=== PATIENT | male | born 1935 | race Caucasian/White ===

== ENCOUNTER → 2017-09-12 | Outpatient (CLI) | payer OTHER ==
[~2017-09-12] MED LIST: ASPIR 8181 M1 PO; ASPIRIN EC325 MG PO; ATORVASTATIN CA40 MG PO; CARVEDILOL3.125 MG PO; DONEPEZIL HCL10 MG PO; GLIPIZIDE10 MG PO; LEVEMIR FL100 UNIT/1 SC; LEVOFLOXACIN500 MG PO; LISINOPRIL2.5 MG PO; NORVASC10 MG PO; NORVASC5 MG PO; NOVOLOG PE100 UNITS/ SC; NYSTATIN15 GM TP; OMEPRAZOLE20 M2 PO; PROSCAR5 MG PO; TENORMIN50 MG PO; TERAZOSIN HCL5 MG PO; VITAMIN D1000 UNIT PO; ZESTORETIC 20-1 EAC2 PO
== END ==
LOC: RAD 11:00
DX: N28.1 Cyst of kidney, acquired (principal); I71.4 Abdominal aortic aneurysm, without rupture; M89.8X8 Other specified disorders of bone, other site; N32.89 Other specified disorders of bladder; K40.90 Unilateral inguinal hernia, without obstruction or gangrene, not specified as recurrent; N18.3 Chronic kidney disease, stage 3 (moderate)
CPT/HCPCS: 74178

== ENCOUNTER 2017-12-22 13:58 | Observation (INO) | payer OTHER ==
[~2017-12-22] VITALS: Ht 185.4 cm; Wt 111.2 kg
[2017-12-22 15:37] LABS: HEMOGLOBIN 14.9 G/DL (12.5-16.6); MCH 33.3 PG (29.0-34.0); MCHC 33.9 G/DL (30.0-36.0); MCV 98.2 FL (86-99); PLATELET COUNT 160 K/uL (156-360); RBC DIS.WIDTH-CV 12.3 % (11.8-14.6); RBC DIS.WIDTH-SD 44.5 % (39-53); RED BLOOD COUNT 4.48 M/uL (4.00-5.50); WHITE BLOOD COUNT 7.6 K/uL (4.1-10.2)
[2017-12-22 15:56] LABS: CHLORIDE 103 MEQ/L (99-109); MAGNESIUM 1.9 mg/dl (1.3-2.7); POTASSIUM 4.6 MEQ/L (3.7-5.4); SODIUM 140 MEQ/L (136-147)
[2017-12-22 16:02] LABS: CREATININE 1.7 MG/DL (0.6-1.3); GFR ESTIMATE (CALCULATED) 41 mL/min/ (58.99-99999); GLUCOSE 159 mg/dL (70-99); UREA NITROGEN (BUN) 32 mg/dL (9-23)
[2017-12-22 16:51] LABS: APPEARANCE CLEAR ((CLEAR)); BILIRUBIN NEGATIVE; BLOOD NEGATIVE; COLOR YELLOW ((YELLOW)); GLUCOSE (STRIP) NEGATIVE; KETONES NEGATIVE; LEUKOCYTES MODERATE; NITRITE NEGATIVE; PROTEIN (STRIP) 100; SPECIFIC GRAVITY 1.015 (1.000-1.030); UROBILINOGEN 0.2 MG/DL (0.2-1.0)
[2017-12-22] MEDS ORDERED: ECOTRIN325 MG PO (16:57)
[2017-12-22] MEDS ORDERED: VITAMIN D-3 401 EACH PO (16:57)
[2017-12-22] MEDS ORDERED: MIRALAX17 GM PO (16:58)
[2017-12-22] MEDS ORDERED: LASIX40 MG PO (16:59)
[2017-12-22] MEDS ORDERED: COREG25 M1 PO (17:00)
[2017-12-22] MEDS ORDERED: PRINIVIL5 MG PO (17:00)
[2017-12-22] MEDS ORDERED: BUSPAR10 MG PO (17:01)
[2017-12-22] MEDS ORDERED: DESYREL 150 MG150 MG PO (17:02)
[2017-12-22] MEDS ORDERED: FLOMAX0.4 MG PO (17:03)
[2017-12-22] MEDS ORDERED: SENEXON-S TABL1 EACH PO (17:03)
[2017-12-22] MEDS ORDERED: ZANTAC150 MG PO (17:04)
[2017-12-22] MEDS ORDERED: PROSCAR5 MG PO (17:04)
[2017-12-22] MEDS ORDERED: ATIVAN0.5 MG PO (17:05)
[2017-12-22] MEDS ORDERED: TRESIBA FL100 UNIT/1 SC (17:06)
[2017-12-22] MEDS ORDERED: NOVOLOG PE100 UNITS/ SC (17:08)
[2017-12-22] MEDS ORDERED: PREPARATION H1 EAC4 PR (17:09)
[2017-12-22] MEDS ORDERED: GLUCAGEN1 MG/1 ML IM (17:09)
[2017-12-22 17:11] LABS: BACTERIA NONE SEEN /HPF; EPITHELIAL CELLS RARE /HPF; MUCUS TRACE /LPF; UCUL ADDED? YES; WHITE BLOOD CELLS 20-30 /HPF (0-5)
[2017-12-22] MEDS ORDERED: ULTRAM50 MG PO (17:11)
[2017-12-22] MEDS ORDERED: TYLENOL REGULA325 MG PO (17:12)
[2017-12-22] MEDS ORDERED: DUONEB 2.5-0.5 M3 ML AEROSOL (17:13)
[2017-12-22 17:38] LABS: TROP-I INTERPRETATION NEGATIVE; TROPONIN-I 0.02 ng/mL (0.0-0.30)
[2017-12-22 19:49] LABS: THYROTROPIN (TSH) 2.7 MIU/L (0.4-5.5)
[2017-12-22 21:25] LABS: HDL CHOLESTEROL 33 MG/DL (Desirable>=40); LDL CHOLESTEROL 56 mg/dL (Desirable<100); NON-HDL CHOLESTEROL 87 mg/dL (Desirable<160); TOTAL CHOLESTEROL 120 mg/dL (Desirable<200); TRIGLYCERIDES 154 MG/DL (Normal: <150)
[2017-12-23 00:02] VITALS: BP 131/82
[2017-12-23 00:15] LABS: TROP-I INTERPRETATION NEGATIVE; TROPONIN-I 0.01 ng/mL (0.0-0.30)
[2017-12-23 04:00] VITALS: BP 115/87
[2017-12-23 05:27] LABS: HEMATOCRIT 40.6 % (38.0-50.0); HEMOGLOBIN 13.5 G/DL (12.5-16.6); MCH 32.5 PG (29.0-34.0); MCHC 33.3 G/DL (30.0-36.0); MCV 97.8 FL (86-99); PLATELET COUNT 149 K/uL (156-360); RBC DIS.WIDTH-CV 12.3 % (11.8-14.6); RBC DIS.WIDTH-SD 44.4 % (39-53); RED BLOOD COUNT 4.15 M/uL (4.00-5.50); WHITE BLOOD COUNT 7.7 K/uL (4.1-10.2)
[2017-12-23 05:45] LABS: TROP-I INTERPRETATION NEGATIVE; TROPONIN-I 0.01 ng/mL (0.0-0.30)
[2017-12-23 05:59] LABS: ALBUMIN 3.4 G/DL (3.2-4.8); ALKALINE PHOSPHATASE 97 IU/L (3-129); ALT (GPT) 12 IU/L (3-49); AST (GOT) 12 IU/L (2-34); CHLORIDE 107 MEQ/L (99-109); CREATININE 1.7 MG/DL (0.6-1.3); GFR ESTIMATE (CALCULATED) 41 mL/min/ (58.99-99999); SODIUM 142 MEQ/L (136-147); TOTAL BILIRUBIN 0.8 MG/DL (0.0-1.0); TOTAL PROTEIN 5.9 G/DL (6.4-8.3); UREA NITROGEN (BUN) 31 mg/dL (9-23)
[2017-12-23 06:11] LABS: GLUCOSE 105 mg/dL (70-99)
[2017-12-23 07:35] VITALS: BP 138/107
[2017-12-23 11:22] LABS: HEMOGLOBIN A1c (GLYCOHEMOGLOB) 8.1 % (Below 5.7)
[2017-12-23 12:02] VITALS: BP 134/89
[2017-12-23] MEDS ORDERED: ELIQUIS2.5 MG PO (12:41)
[2017-12-23] MEDS ORDERED: CEFTIN500 MG PO (12:43)
== END 2017-12-23 15:05 ==
LOC: EME 13:58 → 4SOUTH 17:52 → EDOF 17:52 → ENRESERV 18:00 → CANRESERV 18:30 → ENRESERV 21:05 → 4SOUTH 22:28
PROVIDERS: Emergency Medicine; Hospitalist
DX: I48.91 Unspecified atrial fibrillation (principal); N39.0 Urinary tract infection, site not specified; I12.9 Hypertensive chronic kidney disease with stage 1 through stage 4 chronic kidney disease, or unspecified chronic kidney disease; E11.22 Type 2 diabetes mellitus with diabetic chronic kidney disease; N18.9 Chronic kidney disease, unspecified; R47.01 Aphasia; F03.90 Unspecified dementia, unspecified severity, without behavioral disturbance, psychotic disturbance, mood disturbance, and anxiety; J44.9 Chronic obstructive pulmonary disease, unspecified; E78.5 Hyperlipidemia, unspecified; R32 Unspecified urinary incontinence; Z86.73 Personal history of transient ischemic attack (TIA), and cerebral infarction without residual deficits; Z79.4 Long term (current) use of insulin; Z79.01 Long term (current) use of anticoagulants; E66.9 Obesity, unspecified; Z68.32 Body mass index [BMI] 32.0-32.9, adult; N40.0 Benign prostatic hyperplasia without lower urinary tract symptoms
CPT/HCPCS: 70450; 70551; 71046; 80048; 80053; 80061; 81003; 82948; 83036; 83735; 84443; 84484; 85027; 87086 GA; 93005; 93306; 93880; 94799; 99281; 99285; G0378; G8978 GP CM; G8979 CJ; G8980 GP CM; G8987 GO CM; G8988 GO CL; G8989 GO CM; J0696